=== PATIENT | male | born 1960 | race Two or more races ===

== ENCOUNTER 2024-06-28 10:10 | Day surgery (SDC) | payer MEDICARE, SELFPAY ==
--- NOTE | 2024-06-27 08:00 | EKG_ITS ---
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
[2024-06-27 11:09] VITALS: BMI 26.7
[2024-06-27 11:29] LABS: Alanine Aminotransferase 34 U/L (10-49); Albumin, Serum 5.1 gm/dL (3.4-4.8); Alkaline Phosphatase 111 U/L (46-116); Anion Gap 8 (7-16); Aspartate Amino Transferase 26 U/L (0-34); BUN/Creatinine Ratio 15 Ratio (12-20); Bilirubin,Total 0.7 mg/dL (0.3-1.2); Blood Urea Nitrogen 12 mg/dL (9-23); Calcium 9.5 mg/dL (8.3-10.6); Calcium (Corrected) 9.5 mg/dL (8.5-10.1); Carbon Dioxide 27.7 mMol/L (20.0-31.0); Chloride 100 mMol/L (98-107); Creatinine (Component) 0.8 mg/dL (0.6-1.3); Estimated Creatinine Clearance 89.1 mL/min (>60); Globulin 2.6 gm/dL (2.3-3.5); Glucose 125 mg/dL (74-106); Osmolality,Calculated 272 (275-295); Potassium 4.5 mMol/L (3.4-5.1); Sodium 136 mMol/L (136-145); Total Protein 7.7 gm/dL (5.7-8.2); eGFR > 60 See Note
[2024-06-28] VITALS (7 sets, daily range): BP systolic 115–142; BP diastolic 74–80; PULSE 76–86; RESP 12–18; TEMP 36.2–36.6; O2SAT 96–100; BMI 25.2
--- NOTE | 2024-06-28 14:25 | SUR.PHASEII ---
1319: pt arrived to PACU via gurney awake, alert, able to follow commands, breathing unalbored, report from Dori TALAVERA, Micaela DAILEY, and Dr Schwartz 1350: pt able to ambulate with steady gait to bathroom 1400: pt had small amount of feces with scant amount of bright red drainage in toilet, pt informed that states this is normal and to return to ER if he has heavy/continuous bleeding 1425: pt awake, alert, able to follow commands, breathing unlabored, VS stable, discharge instructions given with spouse present using telephone gambling floor supervisor Francisco Javier ID#[id number], pt and spouse verbalize understanding of discharge instructions, pt discharged via wheelchair with all belongings and copies of discharge paperwork.
== END 2024-06-28 14:25 | disposition home or self-care (01) ==
PROVIDERS: Anesthesiology; Referring Provider Internal Medicine Gastroenterology; Visit Provider Internal Medicine Gastroenterology
PROC: 0DJD8ZZ Inspection of Lower Intestinal Tract, Via Natural or Artificial Opening Endoscopic (ICD-10-PCS; CPT 45378; principal; 2024-06-28 12:15)
DX: D12.2 Benign neoplasm of ascending colon (principal); D12.3 Benign neoplasm of transverse colon; K64.3 Fourth degree hemorrhoids; Z01.810 Encounter for preprocedural cardiovascular examination
CPT/HCPCS: 45385; 45380; 46221; 36415; 80053; 93005; A4217; A4649

== ENCOUNTER 2024-06-29 08:50 | Day surgery (SDC) | payer MEDICARE, SELFPAY ==
[2024-06-29] VITALS (8 sets, daily range): BP systolic 108–136; BP diastolic 65–90; PULSE 70–98; RESP 12–22; TEMP 36.2–36.3; O2SAT 92–99; BMI 25.7
--- NOTE | 2024-06-29 10:42 | SUR.PHASEII ---
1042: received pt from OR via [employer]. received report from ILAN Sweeney. pt sleepy at this time. no s/s of pain or discomfort. no s/s of resp. distress or discomfort.
[2024-06-29] MEDS: RINGERS LACTATED 1000 ML 1,000 ML 125 ML IV (10:48)
[2024-06-29] MEDS: MIDAZOLAM INJ 1 MG/ML VIAL 2 ML (ASD USE ONLY) 2 MG IV (10:49)
[2024-06-29] MEDS: fentaNYL CIT INJ 50 mCg/ML AMP 2ML (ASD USE ONLY) IV (10:49)
[2024-06-29] MEDS: DiphenhydrAMINE INJ 50 MG/ML VIAL 25 MG IV (10:49)
--- NOTE | 2024-06-29 11:05 | SUR.PHASEII ---
1105: pt able to drink soda without any issues.
--- NOTE | 2024-06-29 11:15 | SUR.PHASEII ---
1115: ambulate to go bathroom with assist. helps patient to change his clothing.
--- NOTE | 2024-06-29 11:45 | SUR.PHASEII ---
1145: pt discharge to home via wheelchair with on the side. pt alert and oriented to name, place and time. denies any pain or discomfort. no s/s of resp. distress or discomfort. discharge instructions given to pt and , all questions answer and MD talk to patient and about new medication was prescribed, verbalizes understanding. all belongings brought given back to patient.
== END 2024-06-29 11:45 | disposition home or self-care (01) ==
PROVIDERS: Referring Provider Internal Medicine Gastroenterology; Visit Provider Internal Medicine Gastroenterology
PROC: (CPT 43239; principal; 2024-06-29 11:15)
DX: K22.2 Esophageal obstruction (principal); K29.70 Gastritis, unspecified, without bleeding; K44.9 Diaphragmatic hernia without obstruction or gangrene; K26.9 Duodenal ulcer, unspecified as acute or chronic, without hemorrhage or perforation; E88.810 Metabolic syndrome
CPT/HCPCS: 43249; 43239; A4649; C1726; J1200; J2250; J3010; J7120; A9270